=== PATIENT | male | born 1990 | race Caucasian/White ===

== ENCOUNTER 2023-02-21 10:38 | Emergency (ER) | payer SELFPAY ==
[2023-02-21] MEDS ORDERED: Diazepam 10 MG/2 ML SYRINGE ONE (11:52)
[2023-02-21] MEDS ORDERED: Ketorolac Tromethamine 30 MG/ML VIAL ONE (11:52)
[2023-02-21] MEDS ORDERED: Diazepam 5 MG TAB ONE (12:48)
== END 2023-02-21 12:50 | disposition home or self-care (01) ==
LOC: CSHERS 10:38
DX: S39.012A Strain of muscle, fascia and tendon of lower back, initial encounter (principal); X50.9XXA Other and unspecified overexertion or strenuous movements or postures, initial encounter
CPT/HCPCS: 72131; 96372; J1885; J3360